=== PATIENT | female | born 1985 | race Hispanic/Latino ===

== ENCOUNTER 2024-07-24 18:44 | Emergency (ER) | payer SELFPAY ==
[2024-07-24 18:50] VITALS: BP 133/78
[2024-07-24 19:18] LABS: Hematocrit 44.5 % (37.0-47.0); Hemoglobin 15.8 g/dL (12.0-16.0); Mean Corp Hgb Conc. 35.5 g/dL (33.0-37.0); Mean Corpuscular Volume 90.1 fL (81.0-99.0); Red Blood Cell Count 4.94 10^6/uL (4.20-5.40); Red Cell Dist. Width 12.7 % (11.5-14.5); White Blood Cell Count 12.3 10^3/uL (4.8-10.8)
[2024-07-24 19:30] LABS: ALT (SGPT) 29 U/L (0-35); AST (SGOT) 33 U/L (14-36); Alkaline Phosphatase 71 U/L (38-126); Blood Urea Nitrogen 7 mg/dl (7-17); Calcium 9.4 mg/dl (8.4-10.2); Carbon Dioxide 24 mmol/L (22-30); Chloride 101 mmol/L (98-107); Glucose 99 mg/dl (70-99); Potassium 3.9 mmol/L (3.5-5.1); Sodium 140 mmol/L (135-145); Total Bilirubin 0.5 mg/dl (0.2-1.3); eGFR > 60.00
[2024-07-24 20:04] LABS: % Basophils 0.3 % (0-2); % Eosinophils 0.9 % (0-6); % Immature Granulocytes 0.3 % (0-0.5); % Lymphocytes 24.5 % (20.5-51.1); Absolute Eosinophils 0.1 10^3/uL (0-0.7); Absolute Neutrophils 8.1 10^3/uL (1.4-6.5); Nucleated Red Blood Cells % 0 %
--- NOTE | 2024-07-24 21:11 | ED.GENMED ---
History of Present Illness
General
Chief Complaint: Vaginal Bleeding
Source: patient and spouse
Exam Limitations: none
Time Seen by Provider: 07/24/24 20:44
Nursing documentation reviewed up to this point in time: agreed with
History of Present Illness
History of Present Illness:
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
Past History
Past History
ED Past Medical History: None
ED Past Surgical History: None
Social History
Tobacco: Non-smoker
Alcohol: None
Drug: None
Personal:
Living: with family
Review of Systems
Review of Systems
All Other Systems: Not applicable
Constitutional: Denies fever or fatigue
Respiratory: Reports no symptoms
Cardiac: Reports no symptoms
ABD/GI: Reports abdominal pain
: Reports bleeding
Musculoskeletal: Reports no symptoms
Neurological: Reports no symptoms
Phy Exam
Physical Exam
Physical Exam:
Physical Exam
General: no apparent distress, not acutely ill
Neck: No jaw
Heart: s1/s2 regular rate and rhythm, no murmur. equal radial pulses.
Lungs: no acute respiratory distress.
Abdomen: Soft mild left greater than right lower abdominal tender
Neuro: alert and oriented. no focal neurological deficits
Skin: no rash
Psychiatric: well kept. interactive and cooperative
Extremities: no edema.
Course
Orders/Labs/Results
Orders:
Orders
07/24/24 19:02
Complete Blood Count/With Diff Urgent
Comprehensive Metabolic Panel Urgent
HCG, Beta Quantitative [Beta HCG Quantitative] Urgent
Is this a screen?: No
Comment: patient known to be
07/24/24 19:38
US W Transvaginal Urgent
Reason For Exam: pvb
07/24/24 23:28
Acetaminophen [Tylenol] 650 mg .ROUTE .STK-MED ONE
07/24/24 23:29
Acetaminophen [Tylenol] 650 mg PO NOW STA
07/25/24 00:44
Blood Group&Type Urgent
Abnormal Lab Results
07/24/24
19:02
WBC 12.3 H 10^3/uL
(4.8-10.8)
MCH 32.0 H pg
(27.0-31.0)
Absolute Neuts (auto) 8.1 H 10^3/uL
(1.4-6.5)
Absolute Monos (auto) 1.0 H 10^3/uL
(0.1-0.6)
07/24/24 19:02
07/24/24 19:02
Vital Signs
Initial and Last Documented VS:
Initial Vital Signs
Temp Pulse Resp BP Pulse Ox
98.0 F 87 18 133/78 98
07/24/24 18:50 07/24/24 18:50 07/24/24 18:50 07/24/24 18:50 07/24/24 18:50
Last Documented Vital Signs
Temp Pulse Resp BP Pulse Ox
98.0 F 77 18 111/62 99
07/24/24 18:50 07/25/24 00:25 07/25/24 00:25 07/25/24 00:25 07/25/24 00:25
MDM/Problems Addressed
Differential Diagnosis Includes:
Early IUP ectopic threatened AB
MDM/Problems Addressed:
bleeding
*Critical Care Note
Total Time (30-74mins, 75-104mins- exclusive of procedures): Not Applicable
Update Note
Update Note:
Update ultrasound report noted 5-week 5-day IUP heart rate 79 likely due to early gestational age small subchorionic hemorrhage
ED Attending Note
-
Portions of this chart may have been created with voice recognition software.� Occasional wrong word or��sound alike� substitutions may have occurred due to the inherent limitations of voice recognition software.
Discharge Plan
Departure
Patient Disposition: Home (Routine Discharge)
Date of Disposition: 07/25/24
Time of Disposition: 00:45
Patient with high blood pressure during this ER visit?: No
Condition: Good
Covid-19: Not Applicable
Discharge Problem:
Vaginal bleeding
Instructions: Threatened Miscarriage (DC)
Referrals:
UNKNOWN - PT DOES,NOT KNOW [Family Provider] -
Margie Calderon MD [Active] - Next open appointment
Interventions
Interventions:
*Risk Screen - Suicide Last Done: 07/24/24 18:50
*General Assessment Last Done: 07/24/24 18:50
*Neglect/Abuse Screening Last Done: 07/24/24 18:50
*ED COVID-19 Vaccine History Last Done: 07/24/24 18:50
ED-Female Genitourinary Assessment Last Done: 07/24/24 20:54
Discharge Date and Time
Print Language: TANZANIAN
[2024-07-24] MEDS: TYLENOL 650 MG PO (23:29)
[2024-07-25 00:25] VITALS: BP 111/62
== END 2024-07-25 02:20 | disposition home or self-care (01) ==
LOC: EMR 18:44
PROVIDERS: Student in an Organized Health Care Education/Training Program; EMERGENCY PHYSICIAN Emergency Medicine
DX: O20.8 Other hemorrhage in early pregnancy (principal); Z3A.01 Less than 8 weeks gestation of pregnancy
CPT/HCPCS: 99284; 76801; 76817; 80053; 84702; 85025; 86900; 86901